=== PATIENT | female | born 1975 | race Two or more races ===

== ENCOUNTER 2025-05-17 13:29 | Emergency (ER) | payer MEDICAID, OTHER ==
[~2025-05-17] VITALS: Ht 157.5 cm; Wt 54.0 kg
--- NOTE | 2025-05-17 14:32 | ED.PDOC ---
History of Present Illness HPI Comments 50-year-old female with a history of Lora was brought by significant other to the ER because she has been having lesion on the left side of the chest which he noticed only few days ago increasing in size. Significant other states that she has been having nausea vomiting for the past few days. Unable to get any history from the patient. She does fall frequently as noticed by her bruising of her extremities. She does have a helmet on did protect her had from any injuries from the fall. She is tachycardic on arrival. Unable to control her m oment. 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 History Social History Smoker: Non-Smoker Alcohol: Denies ETOH Use Drugs: Denies Drug Use Gastrointestinal: reports: nausea, vomiting Unable to Obtain due to: Altered Mental Status Physical Exam General Appearance: Moderate Distress HEENT: Normal ENT Inspection, Pharynx Normal, TMs Normal Neck: Full Range of Motion, Non-Tender, Normal, Normal Inspection Respiratory: Chest Non-Tender, Lungs Clear, No Accessory Muscle Use, No Respiratory Distress, Normal Breath Sounds Cardiovascular: No Edema, No JVD, No Murmur, No Gallop, Normal Peripheral Pulses, Regular Rate/Rhythm Breast Exam: Deferred Gastrointestinal: No Organomegaly, Non Tender, No Pulsatile Mass, Normal Bowel Sounds, Soft Genitalia: Deferred Pelvic: Deferred Rectal: Deferred Extremities: No calf tenderness, Normal capillary refill, Non-tender, No pedal edema Musculoskeletal : Apperance: Normal Neurologic: Disoriented Cerebellar Function: NOT DONE Reflexes: NOT DONE Skin: Bruises (Bilateral lower extremity), Normal Color Peripheral Pulses: 3+ Radial (R), 3+ Radial (L) Lymphatic: No Adenopathy Was a procedure done? Was a procedure done?: No EKG EKG : Pulse Rate (adult): 142 Cardiac Rhythm: ST Differential Dx Considerations may include: Sepsis from urinary tract infection Electrolyte imbalance X-Ray, Labs, Meds, VS Vital Signs Date Time Temp Pulse Resp B/P (MAP) Pulse Ox O2 Delivery O2 Flow Rate FiO2 05/17/25 14:32 142 05/17/25 13:46 142 05/17/25 13:39 97.5 139 16 153/89 95 97.5 Lab Test 05/17/25 14:46 Range/Units White Blood Count 28.5 H 4.4-10.8 10^3/uL Red Blood Count 4.33 4.0-5.20 10^6/uL Hemoglobin 13.1 12.2-16.2 g/dL Hematocrit 39.2 36.0-46.0 % Mean Corpuscular Volume 90.7 80.0-100.0 fL Mean Corpuscular Hemoglobin 30.3 28.0-32.0 pg Mean Corpuscular Hemoglobin Concent 33.4 32.0-36.0 g/dL Red Cell Distribution Width 14.0 11.8-14.3 % Platelet Count 886 *H 140-450 10^3/uL Mean Platelet Volume 6.6 L 6.9-10.8 fL Neutrophils (%) (Auto) 37.0-80.0 % Lymphocytes (%) (Auto) 10.0-50.0 % Monocytes (%) (Auto) 0.0-12.0 % Basophils (%) (Auto) 0.0-2.0 % Neutrophils # (Auto) 1.6-8.6 10 ^3/uL Lymphocytes # (Auto) 0.4-5.4 10 ^3/uL Monocytes # (Auto) 0-1.3 10 ^3/uL Differential Total Cells Counted Pending Neutrophils % (Manual) Pending Band Neutrophils % (Manual) Pending Lymphocytes % (Manual) Pending Monocytes % (Manual) Pending Eosinophils % (Manual) Pending Basophils % (Manual) Pending Metamyelocytes % (manual) Pending Myelocytes % (Manual) Pending Promyelocytes % (Manual) Pending Blast Cells % (Manual) Pending Reactive Lymphocytes Pending Platelet Estimate Pending Sodium Level 143 136-145 mmol/L Potassium Level 4.5 3.5-5.1 mmol/L Chloride Level 102 98-107 mmol/L Carbon Dioxide Level 27 20-31 mmol/L Anion Gap 14 5-15 Blood Urea Nitrogen 26 H 9-23 mg/dL Creatinine 1.11 H 0.550-1.02 mg/dL Glomerular Filtration Rate Calc 61 >90 mL/min BUN/Creatinine Ratio 23.4 H 10.0-20.0 Serum Glucose 146 H 74-106 mg/dL Calcium Level 10.0 8.7-10.4 mg/dL Troponin I High Sensitivity 19 </=34 ng/L Patient is slightly disoriented. Unable to get history from the patient. Chronic history. Tachycardia. Holding saturation. [place]. More concerning is the mass on her left chest. Significant other has not been clear about the lesion on her chest. Establish intravenous access. Was given fluids. Was given Ativan. She does have bruising on her lower extremities. WBC elevated. Infection possibly from the wound in the chest. Blood sugar elevated. Was given Zosyn. Was given clindamycin. Blood culture. Lactic acid. Continue to monitor. Time of 1ST Reevaluation: 14:28 Reevaluation 1ST: Unchanged Patient Education/Counseling: Diagnosis, Treatment, Prognosis Family Education/Counseling: Diagnosis, Treatment SEPSIS Sepsis Screen Date sepsis recognized/suspect: May 17, 2025 Time Sepsis recognized/suspect: 3 Recent Procedure: No On Antibiotic Therapy: No Respiratory Rate >20: No Heart Rate >90: Yes Temp<36 C (96.8 F) or >38.3 C: No SBP <90 or MAP <65 mmHG: No New Acute Mental Status Change: No Is the patient on CPAP, BIPAP,: No Physician Orders Electrocardigram (05/17/25 13:52) Complete Blood Count (05/17/25 14:22) Urinalysis (05/17/25 14:22) Head Without Contrast (05/17/25 14:22) Chest Without Contrast (05/17/25 14:22) Manual Differential (05/17/25 14:46) Vital Signs Date Time Temp Pulse Resp B/P (MAP) Pulse Ox O2 Delivery O2 Flow Rate FiO2 05/17/25 14:32 142 05/17/25 13:46 142 05/17/25 13:39 97.5 139 16 153/89 95 97.5 Laboratory Tests Test 05/17/25 14:46 White Blood Count 28.5 10^3/uL (4.4-10.8) H Departure 1 Departure Time of Disposition: 14:32 Impression: Primary Impression: Metabolic encephalopathy Additional Impressions: [place]'s disease Thrombocytosis Hyperglycemia Sepsis, unspecified organism Qualified Codes: A41.9 - Sepsis, unspecified organism Disposition: 09 ADMITTED INPATIENT Admit to: Med Surg Condition: Guarded Critical Care Note Critical Care Time?: Yes (90 min-critical care time only) Stability Stability form required: No Heart Score Heart Score: Heart Score Response (Comments) Value History N/A 0 EKG N/A 0 Age N/A 0 Risk Factors N/A 0 Troponin N/A 0 Total 0 AYDEN MACHUCA MD May 17, 2025 14:32
[2025-05-17 14:59] LABS: Hematocrit 39.2 % (36.0-46.0); Hemoglobin 13.1 g/dL (12.2-16.2); Mean Corpuscular Hemoglobin 30.3 pg (28.0-32.0); Mean Corpuscular Volume 90.7 fL (80.0-100.0)
[2025-05-17 15:04] LABS: Chloride 102 mmol/L (98-107); Potassium 4.5 mmol/L (3.5-5.1); Sodium 143 mmol/L (136-145)
[2025-05-17 15:05] LABS: Anion Gap 14 (5-15); Carbon Dioxide 27 mmol/L (20-31)
[2025-05-17 15:06] LABS: Calcium 10.0 mg/dL (8.7-10.4)
[2025-05-17 15:10] LABS: BUN/Creatinine Ratio 23.4 (10.0-20.0)
[2025-05-17 15:16] LABS: Blood Urea Nitrogen 26 mg/dL (9-23); Glucose 146 mg/dL (74-106)
--- NOTE | 2025-05-17 15:53 | DVH ---
EXAM: CT HEAD WITHOUT CONTRAST INDICATION: altered TECHNIQUE: CT of the head without intravenous contrast. Radiation Dose : 1. Head: CT Dose: CTDI volume is 64.09 mGy. Dose-length product is 1433.23 mGy*cm The dose indicators for CT are the volume Computed Tomography (CT) Dose Index (CTDIvol) and the Dose Length Product (DLP), and are measured in units of mGy and mGy-cm, respectively. These indicators are not patient dose, but values generated from the CT scanner acquisition factors. The report includes radiation exposure data for exposures received during this examination. COMPARISON: None FINDINGS: There is no evidence of acute intracranial hemorrhage, extra-axial collection, mass effect, midline s hift, herniation or hydrocephalus. The ventricles, sulci and cisterns are age appropriate. The yeung-white differentiation is intact. Patchy periventricular and subcortical white matter hypoattenuation is nonspecific but may be related to small vessel ischemic disease. The visualized paranasal sinuses and mastoid air cells are clear. Right frontal and Right parietal soft-tissue hematoma. IMPRESSION: No acute intracranial abnormality. Radiation optimization: All CT scans at this facility use at least one of these dose optimization yury hniques: automated exposure control mA and/or kV adjustment per patient size (includes targeted exam s where dose is matched to clinical indication) or iterative reconstruction.
--- NOTE | 2025-05-17 16:07 | DVH ---
Procedure: CT CHEST WITHOUT CONTRAST Reason for study/Clinical History: [email or web address] Comparison Study: None Exam Date: 05/17/2025 02:27 PM TECHNIQUE: Multidetector CT of the chest was performed from the lung apices to the upper abdomen with out the use of intravenous contract. Axial, coronal and sagittal multiplanar reformats were performed . Radiation Dose Information: CT Dose: CTDI volume is 68.65 mGy. Dose-length product is 1433.23 mGy*cm The dose indicators for CT are the volume Computed Tomography (CT) Dose Index (CTDIvol) and the Dose Length Product (DLP), and are measured in units of mGy and mGy-cm, respectively. These indicators are not patient dose, but values generated from the CT scanner acquisition factors. The report includes radiation exposure data for exposures received during this examination. FINDINGS: Lower neck: Normal thyroid. Lungs: Airspace disease throughout the right lower lobe with a 8 mm cavitary nodule in the right lowe r lobe series 6 image 40 Heart/Vascular Structures: Normal heart size. No pericardial effusion. Lymph Nodes: No adenopathy either intrathoracic or extra thoracic. Pleura: No pleural effusion or significant pneumothorax. Musculoskeletal: No acute osseous abnormality. Soft tissues: Over the left upper chest is a 8.5 by 4.8 cm soft tissue mass which measures proximally 10 cm in transverse dimension. It appears separate and distinct from the left breast. It may be a ma ss in the left pectoral muscle. Etiology uncertain and nonspecific by CT Upper abdomen: Limited portions of the upper abdomen are unremarkable. IMPRESSION: 1. 8.5 x 4.8 cm soft tissue mass over the left upper chest, may be a mass in the left pectoral muscle . Appears separate and distinct from the left breast. 2. Etiology uncertain and nonspecific by CT. 3. Right lower lobe airspace disease with an 8 mm cavitary nodule. 4. Radiation Dose: CTDI volume is 68.65 mGy. 5. Dose-length product is 1433.23 mGy*cm. Radiation optimization: All CT scans at this facility use at least one of these dose optimization yury hniques: automated exposure control mA and/or kV adjustment per patient size (includes targeted exam s where dose is matched to clinical indication) or iterative reconstruction.
[2025-05-17] MEDS: LORazepam 2MG/ML-1ML VIAL IV ONE (16:20)
[2025-05-17 16:21] LABS: Giant Platelets Few
[2025-05-17 16:28] LABS: Total Cells Counted 100.0 (100)
[2025-05-17] MEDS: SODIUM CHLORIDE 0.9% 1,000 ML IV ONE ×3 (16:49→20:35)
[2025-05-17 17:28] LABS: Lactic Acid w/Reflex 4.4 mmol/L (0.4-2.0)
[2025-05-17] MEDS: PIPERACILLIN-TAZOB 3.375GM 100 ML IV ONE (18:30)
[2025-05-17 19:30] VITALS: PULSE 109; RESP 25; O2SAT 95
--- NOTE | 2025-05-17 19:49 | ECG ---
[facility] Test Date: 2025-05-17 Test Time: 13:46:16 Pat Name: SHIV WOODWARD Department: ED Room: Gender: F Corporate Training Manager: maricarmen : 1975 Requested By: EMERGENCY EMERGENCY Order Number: [id number] Reading MD: Gilbert Maxwell Measurements Intervals [place] Rate: 142 P: 63 GA: 124 QRS: 20 QRSD: 82 T: 17 QT: 273 QTc: 420 Interpretive Statements Sinus tachycardia Consider right atrial enlargement Minimal ST depression, inferior leads Electronically Signed On 05-18-2025 14:27:50 PDT by Gilbert Maxwell Please click the below link to view image of tracing.
[2025-05-17] MEDS: CLINDAMYCIN 300MG IV 50 ML IV ONE (20:33)
[2025-05-17 22:26] LABS: Urine Protein, UAD 1+ (Negative)
[2025-05-17 23:25] VITALS: BP 105/62; PULSE 96; RESP 22; TEMP 98.3; O2SAT 97
== END 2025-05-17 22:20 | disposition short-term general hospital (02) ==
LOC: ER 13:29
DX: A41.9 Sepsis, unspecified organism (principal); G93.41 Metabolic encephalopathy; G10 Huntington's disease; D75.839 Thrombocytosis, unspecified; R73.9 Hyperglycemia, unspecified; Z88.5 Allergy status to narcotic agent
CPT/HCPCS: 36415; 70450; 71250; 80048; 81001; 83605; 84484; 85007; 85027; 87040; 93005; 96361; 96365; 96366; 96368; 96375; 99291; 99292; J2060; J2543; J3490; J7030